=== PATIENT | female | born 1935 | race Two or more races ===

== ENCOUNTER 2018-12-13 16:09 | Observation (INO) | payer MEDICARE, OTHER ==
[~2018-12-13] VITALS: Ht 167.6 cm; Wt 70.0 kg
[2018-12-13 16:45] LABS: BASOPHILS # (AUTO) 0.1 X10'3 (0-0.2); BASOPHILS % (AUTO) 0.7 % (0-1); EOSINOPHILS # (AUTO) 0.1 X10'3 (0-0.9); EOSINOPHILS % (AUTO) 1.7 % (0-6); HEMATOCRIT 43.5 % (35.0-45.0); LYMPHOCYTES # (AUTO) 1.7 X10'3 (1.1-4.8); LYMPHOCYTES % (AUTO) 23.1 % (21-51); MEAN CORPUSCULAR HEMOGLOBIN 32.7 PG (27.0-31.0); MEAN CORPUSCULAR HGB CONC 34.5 g/dL (33.0-36.5); MEAN CORPUSCULAR VOLUME 94.6 FL (78-98); MEAN PLATELET VOLUME 7.2 FL (7.4-10.4); MONOCYTES # (AUTO) 0.8 X10'3 (0-0.9); MONOCYTES % (AUTO) 11.2 % (2-12); NEUTROPHILS # (AUTO) 4.8 X10'3 (1.8-7.7); NEUTROPHILS % (AUTO) 63.3 % (42-75); PLATELET COUNT 323 X10'3 (140-440); RED BLOOD COUNT 4.59 X10'6 (4.20-5.60); RED CELL DISTRIBUTION WIDTH 13.4 % (11.5-14.5); WHITE BLOOD COUNT 7.5 X10'3 (4.5-11.0)
[2018-12-13 16:59] LABS: PARTIAL THROMBOPLASTIN TIME 27 SECONDS (22-32)
[2018-12-13 17:01] LABS: ALANINE AMINOTRANSFERASE 35 U/L (12-78); ALBUMIN 3.5 G/DL (3.4-5.0); ALBUMIN/GLOBULIN RATIO 0.9 (1.1-1.5); ALKALINE PHOSPHATASE 84 IU/L (46-116); ANION GAP 10 (8-16); ASPARTATE AMINO TRANSFERASE 22 U/L (10-37); BILIRUBIN,TOTAL 0.4 MG/DL (0.1-1.0); BLOOD UREA NITROGEN 11 MG/DL (7-18); BUN/CREATININE RATIO 16.2 (6.6-38.0); CALCIUM 8.9 MG/DL (8.5-10.1); CHLORIDE 109 MMOL/L (99-107); CREATININE 0.68 MG/DL (0.40-0.90); GLUCOSE 130 MG/DL (70-104); POTASSIUM 3.4 MMOL/L (3.5-5.1); SODIUM 143 MMOL/L (135-145); TOTAL CARBON DIOXIDE 23.6 MMOL/L (24-32); TOTAL PROTEIN 7.3 G/DL (6.4-8.2); eGFR 83 ML/MIN
[2018-12-13] MEDS ORDERED: LISI10TA4 PO (17:27)
[2018-12-13] MEDS ORDERED: magnesium hydroxide 30ml (MOM) UD suspension PO PRN (17:45)
[2018-12-13] MEDS ORDERED: bisacodyl 10mg suppository rectal RC PRN (17:45)
[2018-12-13] MEDS ORDERED: ondansetron/PF 4mg/2ml inj IV PRN (17:45)
[2018-12-13] MEDS: normal saline 1000ml 1,000 ML IV SCH (17:45)
[2018-12-13] MEDS ORDERED: regadenoson 0.4mg/5ml syringe IV ONE (17:45)
[2018-12-13] MEDS ORDERED: mag hydrox/Alum hydrox/simeth 30ml oral suspension PO PRN (17:45)
[2018-12-13] MEDS ORDERED: morphine 2 MG/ML inj. syringe IV PRN ×2 (17:45)
[2018-12-13] MEDS ORDERED: nitroGLYCERIN 0.4mg SUBLingual tab SL PRN ×2 (17:45)
[2018-12-13] MEDS ORDERED: magnesium 2GM in 50ml NS 50 ML IV PRN (17:45)
[2018-12-13] MEDS ORDERED: potassium CL 10mEq/100ml bag 100 ML IV PRN ×2 (17:45)
[2018-12-13] MEDS ORDERED: magnesium 4gm in 100ml NS 100 ML IV PRN (17:45)
[2018-12-13] MEDS ORDERED: aminophylline 250mg/10ml inj. IV PRN (17:45)
[2018-12-13] MEDS ORDERED: potassium Cl 20 mEq SR tablet PO PRN ×2 (17:45)
[2018-12-13] MEDS ORDERED: magnesium Cl slow-release 64mg tablet PO PRN (17:45)
[2018-12-13] MEDS ORDERED: acetaminophen 325mg tablet PO PRN ×2 (17:45)
[2018-12-13] MEDS ORDERED: metoclopramide 5 mg/ml inj IV PRN (17:45)
[2018-12-13] MEDS ORDERED: metoprolol tartrate 1mg/ml inj IV PRN (17:45)
--- NOTE | 2018-12-13 17:50 | NUR ---
made aware of elevated SBP. Pt. has hx. of HTN and takes lisiniporil. She claims to have taken her last dose of lisinopril this AM.
--- NOTE | 2018-12-13 18:14 | NUR ---
PAGER ID: [phone] MESSAGE: Claudia ESPINOSA ext [phone] YUMI[facility] Spann ED4 needs admit order amended to include admit reason.
[2018-12-13] MEDS: metoprolol tartrate 12.5mg (1/2 tablet) PO SCH (20:09)
[2018-12-13 20:25] LABS: MAGNESIUM 2.1 MG/DL (1.5-2.4); PHOSPHORUS 3.5 MG/DL (2.3-4.5)
[2018-12-13] MEDS ORDERED: temazepam 15mg capsule PO PRN (21:00)
--- NOTE | 2018-12-13 21:00 | NUR ---
Received report from FRANCISCA Taylor in ED. Pt was admitted with c/o angina and chest pain. Patient's blood pressure has been elevated for two days prior to being admitted in ED. Upon arrival to PCU her VS are as follow; BP 175/98, HR 72, SPO2 96% room air, RR 17, and temp. 97.8. Pt is alert and oriented X 4, denies cp, n/v, dizziness, cough, and rated pain 0/10. Pt stated that her recently. Pt is allergic to codeine and she is intolerance to statins.
[2018-12-13 22:00] VITALS: BP 121/56
[2018-12-14] VITALS (12 sets, daily range): BP systolic 112–155; BP diastolic 63–79
--- NOTE | 2018-12-14 01:39 | NUR ---
DART: The following has been completed: MRSA, 2RN Skin Assessment, Malnutrition Risk Screening for Nursing, and Admission Assessment
[2018-12-14 05:20] LABS: BASOPHILS % (AUTO) 0.4 % (0-1); EOSINOPHILS # (AUTO) 0.1 X10'3 (0-0.9); EOSINOPHILS % (AUTO) 1.7 % (0-6); HEMATOCRIT 41.7 % (35.0-45.0); HEMOGLOBIN 14.3 g/dl (12.0-16.0); LYMPHOCYTES # (AUTO) 1.9 X10'3 (1.1-4.8); LYMPHOCYTES % (AUTO) 26.1 % (21-51); MEAN CORPUSCULAR HEMOGLOBIN 32.1 PG (27.0-31.0); MEAN CORPUSCULAR HGB CONC 34.3 g/dL (33.0-36.5); MEAN CORPUSCULAR VOLUME 93.7 FL (78-98); MEAN PLATELET VOLUME 7.3 FL (7.4-10.4); MONOCYTES # (AUTO) 0.9 X10'3 (0-0.9); MONOCYTES % (AUTO) 11.7 % (2-12); NEUTROPHILS # (AUTO) 4.5 X10'3 (1.8-7.7); NEUTROPHILS % (AUTO) 60.1 % (42-75); PLATELET COUNT 315 X10'3 (140-440); RED BLOOD COUNT 4.45 X10'6 (4.20-5.60); RED CELL DISTRIBUTION WIDTH 13.8 % (11.5-14.5); WHITE BLOOD COUNT 7.4 X10'3 (4.5-11.0)
[2018-12-14 05:36] LABS: ALANINE AMINOTRANSFERASE 31 U/L (12-78); ALBUMIN 3.1 G/DL (3.4-5.0); ALBUMIN/GLOBULIN RATIO 0.9 (1.1-1.5); ALKALINE PHOSPHATASE 74 IU/L (46-116); ANION GAP 8 (8-16); ASPARTATE AMINO TRANSFERASE 21 U/L (10-37); BILIRUBIN,TOTAL 0.3 MG/DL (0.1-1.0); BLOOD UREA NITROGEN 11 MG/DL (7-18); BUN/CREATININE RATIO 17.2 (6.6-38.0); CALCIUM 8.3 MG/DL (8.5-10.1); CHLORIDE 110 MMOL/L (99-107); CREATININE 0.64 MG/DL (0.40-0.90); GLUCOSE 111 MG/DL (70-104); POTASSIUM 3.9 MMOL/L (3.5-5.1); SODIUM 145 MMOL/L (135-145); TOTAL PROTEIN 6.6 G/DL (6.4-8.2); eGFR 89 ML/MIN
[2018-12-14 05:40] LABS: CHOL/HDL RATIO 3.8 (0.00-4.99); CHOLESTEROL 227 MG/DL (0-200); HDL CHOLESTEROL 60 MG/DL (35-60); LDL CHOLESTEROL 160 MG/DL (50-100); MAGNESIUM 1.9 MG/DL (1.5-2.4); PHOSPHORUS 4.2 MG/DL (2.3-4.5); TRIGLYCERIDES 70 MG/DL (20-135)
--- NOTE | 2018-12-14 06:10 | NUR ---
Patient in room PCU 3012. I have received report from FRANCISCA Palmer and had the opportunity to ask questions and assume patient care.
--- NOTE | 2018-12-14 06:27 | NUR ---
Problems reprioritized. Patient report given, questions answered & plan of care reviewed with FRANCISCA Lane . Pt stable at shift change
[2018-12-14] MEDS: normal saline 1000ml 1,000 ML IV SCH (07:00)
[2018-12-14] MEDS: metoprolol tartrate 12.5mg (1/2 tablet) PO SCH (08:00)
[2018-12-14] MEDS ORDERED: lisinopril 10 MG tablet PO SCH (08:00)
[2018-12-14] MEDS ORDERED: enoxaparin 40mg/0.4ml syringe SUBCUT SCH (08:00)
[2018-12-14] MEDS ORDERED: K and/or MAG REPLACEMENT MC SCH (08:00)
[2018-12-14] MEDS ORDERED: aspirin 325mg tablet PO SCH (08:30)
--- NOTE | 2018-12-14 09:46 | NUR ---
LEXISCAN (REGADENOSON) 0.4MG IV WAS GIVEN TO PERFORM STRESS TEST.
[2018-12-14] MEDS ORDERED: ASPI-1265 PO (15:32)
--- NOTE | 2018-12-14 16:35 | NUR ---
Patient stable Addendum: 12/14/18 at 1639 by Carleen Johnson RN Patient stable for discharge per MD orders. All discharge instructions and prescriptions reviewed with patient and all questions were answered. Patient verbalized understanding of instructions for OTC medications ordered. PIV discontinued, cannula intact, clean, dry dressing intact. Telemetry #[id number] removed and returned. All personal belongings sent with patient. Patient wheeled to [facility] by RN at 1630. Patient safely in private vehicle to be transported home by daughter.
--- NOTE | 2018-12-14 16:42 | NUR ---
Patient left before receiving flu shot.
[2018-12-15] MEDS ORDERED: FLU VACC QS2019-20 36MOS UP/PF 60 MCG/0.5 ML SYRINGE IMVAC ONE (10:00)
== END 2018-12-14 16:27 | disposition home or self-care (01) ==
LOC: ER 16:10 → ED HOLD 20:12 → PCU 3S 20:42
PROVIDERS: ADMIT Family Medicine; ATTEND Family Medicine
DX: I20.9 Angina pectoris, unspecified (principal); I11.9 Hypertensive heart disease without heart failure; I16.0 Hypertensive urgency; I47.1 Supraventricular tachycardia; R42 Dizziness and giddiness; E87.6 Hypokalemia; E78.5 Hyperlipidemia, unspecified; F02.80 Dementia in other diseases classified elsewhere, unspecified severity, without behavioral disturbance, psychotic disturbance, mood disturbance, and anxiety; G30.9 Alzheimer's disease, unspecified; Z90.710 Acquired absence of both cervix and uterus; Z79.899 Other long term (current) drug therapy; Z88.5 Allergy status to narcotic agent; Z88.8 Allergy status to other drugs, medicaments and biological substances
CPT/HCPCS: 36415; 71045; 78452; 80053; 80061; 83735; 83880; 84100; 84443; 84484; 85025; 85610; 85730; 87081; 93005; 93017; 93306; 96361; 96372; 99284; A9500; G0378; J0280; J2785; J7030; J1650; Q2037